=== PATIENT | female | born 1985 | race Caucasian/White ===

== ENCOUNTER 2016-12-31 14:55 | Emergency (ER) | payer BC, OTHER ==
[2016-12-31 15:02] VITALS: BP 118/74; BMI 35.9
--- NOTE | 2016-12-31 15:50 | DR.GENAD ---
HPI - PCP Primary Care Physician: liza - HPI Comment HPI Comment: WORSE TODAY. FEVER ON AND OFF. PATIENT SAID COUGH IS GAGGING HER AND CAUSING HER TO VOMIT. - Complaint/Symptoms Chief Complaint Doctors Comments: COUGH, COLD CONGESTION AND SORE THROAT TIMES ONE WEEK. Chief Complaint:: patient stated she has been coughing, fever, vomiting and cant eat for about a week. today is worse - Nurses notes reviewed Nurses Notes Review: Yes - Source History Provided: Patient - Mode of Arrival Mode of Arrival: Ambulatory - Timing Onset of Chief Complaint: 12/24/16 Came on: Suddenly - Duration Duration: Constant Duration: Days - Severity Severity: Moderate PMH - PMH Past Medical History: Yes Past Medical History: Anxiety Past Surgical History: Yes Surgical History: , Cholecystectomy - Family History History of Family Medical Conditions: Yes Family Medical History: Diabetes Mellitus, Cancer, Hypertension - Social History Does patient currently use any type of tobacco product: Yes Have you used tobacco products in the last 12 months: Yes Type of Tobacco Use: Cigarettes How many years tobacco product used: 1 Does any household member use tobacco: Yes Alcohol Use: None Do you use any recreational Drugs:: No Lives With: Family Lives Where: Home - infectious screening In the last 2 months have you had wt loss of >10#?: NO Have you had fever, night sweats or hemotysis?: No Have you traveled outside the country in the last 6 months?: No Isolation: Standard ROS - Review of Systems Constitutional: No Symptoms Reported, Weakness, Fatigue. negative: Chills, Fever Eyes: No Symptoms Reported. negative: Eye Pain, Discharge ENTM: No Symptoms Reported, Nose Discharge, Nose Congestion, Throat Pain. negative: Ear Pain Respiratoy: No Symptoms Reported, Productive Cough. negative: Short of Breath, Wheezing Cardiovascular: No Symptoms Reported. negative: Chest Pain Gastrointestinal/Abdominal: No Symptoms Reported. negative: Diarrhea, Nausea, Vomiting Genitourinary: No Symptoms Reported. negative: Dysuria, Frequency, Hematuria Neurological: Headache, Weakness, Dizziness Musculoskeletal: No Symptoms Reported Integumentary: No Symptoms Reported Hematologic/Lymphatic: No Symptoms Reported Endocrine: No Symptoms Reported All Other Systems: Reviewed and Negative PE - Vital Signs Vitals: Temperature 98.4 F Pulse Rate 96 Respiratory Rate 18 Blood Pressure 118/74 O2 Sat by Pulse Oximetry 96 - General Limitations: No Limitations General Appearance: Alert - Head Head Exam: Normal Inspection - Eyes Eye exam: Normal Appearance - ENT ENT Exam: Normal External Ear Exam External Ear Exam: Normal External Inspection TM/Canal Exam: Bilateral Normal Nose Exam: Normal Nose Exam Mouth Exam: Normal Inspection Throat Exam: Normal Inspection - Neck Neck Exam: Trachea Midline - Chest Chest Inspection: Symmetric Chest Wall Rise - Respiratory Respiratory Exam: Normal Lung Sounds Bilat Respiratory Exam: Bilateral Rhonchi, Upper Rhonchi, Lower Rhonchi - Cardiovascular Cardiovascular Exam: Regular Rate, Normal Rhythm, Normal Heart Sounds - Abdominal Exam Abdominal Exam: Normal Bowel Sounds, Soft. negative: Tenderness - Extremities Extremities Exam: Normal Inspection - Back Back Exam: Normal Inspection - Neurologic Neurological Exam: Alert, Oriented X3 - Psychiatric Psychiatric Exam: Normal Affect, Normal Mood - Skin Skin Exam: Normal Color MDM - Differential Diagnosis Differential Diagnosis: SINUSITIS, BRONCHITIS, PNEUMONIA Course - Treatment Treatment: SEE ORDERS. - Education/Counseling Education/Counseling: Patient, Education Educated On: Treatment, Diagnosis, Needs for Follow Up ROR - XRAY XRAY Interpreted by: Radiologist XRAY Findings: REPORT DISCUSS WITH PATIENT. - Diagnosis Discharge Problem: Bronchitis Sinusitis Qualifiers: Sinusitis location: unspecified location Chronicity: acute Recurrence: not specified as recurrent Qualified Code(s): J01.90 - Acute sinusitis, unspecified - Discharge Plan Disposition: HOME, SELF-CARE Condition: Stable Prescriptions: Acetaminophen with Codeine [Tylenol/Codeine #3 300-30 mg] 1 tab PO Q6H PRN #15 tab PRN Reason: Pain Amoxicillin/Potassium Clav [Augmentin 875-125 Tablet] 1 tab PO Q12H #20 tab Benzonatate [TESSALON PERLES *] 200 mg PO TID PRN #30 cap PRN Reason: Cough - Follow ups/Referrals Follow ups/Referrals: HAI HOLBROOK [Primary Care Provider] - 3 days - Instructions Instructions: Sinusitis, Adult, [id number], Acute Bronchitis, [id number] Additional Instructions: RETURN TO ED IF WORSE.
--- NOTE | 2016-12-31 16:18 | RAD ---
Examination: Portable AP chest History: Cough, fever and vomiting Comparison reference: 03/28/2016. Findings: Continued normal heart size with clear lungs and pleural spaces. Impression: No acute abnormality or significant interval change. Reported By:
== END 2016-12-31 16:27 | disposition home or self-care (01) ==
LOC: ER 15:08
DX: J40 Bronchitis, not specified as acute or chronic (principal); J01.80 Other acute sinusitis
CPT/HCPCS: 71010; 99282

== ENCOUNTER 2017-01-24 20:46 | Emergency (ER) | payer BC, OTHER ==
[2017-01-24 21:00] VITALS: BP 134/70; BMI 34.7
[2017-01-24] MEDS ORDERED: TORADOL 60 MG VIAL IM ONE (21:23)
--- NOTE | 2017-01-24 21:25 | DR.GENAD ---
HPI - PCP Primary Care Physician: nfd - Complaint/Symptoms Chief Complaint Doctors Comments: Patient presents with complaint of lower back pain past two days. She has a history of back pain, but has exacerbations. Denies trauma. pain 7/10,worse with flexion, onset two days ago. Chief Complaint:: lower back pain for 2 weeks just gotten worse can't turn with pain - Source History Provided: Patient - Mode of Arrival Mode of Arrival: Ambulatory - Timing Onset of Chief Complaint: 01/10/17 PMH - PMH Past Medical History: No Past Medical History: Anxiety Past Surgical History: Yes Surgical History: , Cholecystectomy, Tonsillectomy - Family History History of Family Medical Conditions: Yes Family Medical History: Diabetes Mellitus, Cancer, Hypertension - Social History Do you use any recreational Drugs:: No Lives Where: Home - infectious screening In the last 2 months have you had wt loss of >10#?: NO Have you had fever, night sweats or hemotysis?: No Have you traveled outside the country in the last 6 months?: No Isolation: Standard ROS - Review of Systems Eyes: No Symptoms Reported ENTM: No Symptoms Reported Respiratoy: No Symptoms Reported Cardiovascular: No Symptoms Reported Gastrointestinal/Abdominal: No Symptoms Reported Genitourinary: No Symptoms Reported Neurological: No Symptoms Reported Musculoskeletal: Back Pain Integumentary: No Symptoms Reported Hematologic/Lymphatic: No Symptoms Reported Endocrine: No Symptoms Reported Psychiatric: No Symptoms Reported All Other Systems: Reviewed and Negative PE - Vital Signs Vitals: Temperature 98.6 F Pulse Rate 105 Respiratory Rate 18 Blood Pressure 134/70 O2 Sat by Pulse Oximetry 100 - General General Appearance: Alert, In No Apparent Distress - Head Head Exam: Normal Inspection, Atraumatic - Eyes Eye exam: Normal Appearance, PERRL, EOMI - ENT ENT Exam: Normal Exam External Ear Exam: Normal External Inspection TM/Canal Exam: Bilateral Normal Nose Exam: Normal Nose Exam Mouth Exam: Normal Inspection Throat Exam: Normal Inspection - Neck Neck Exam: Normal Inspection, Full ROM - Chest Chest Inspection: Normal Inspection - Respiratory Respiratory Exam: Normal Lung Sounds Bilat Respiratory Exam: Bilateral Clear to Auscultation - Cardiovascular Cardiovascular Exam: Regular Rate, Normal Rhythm - Abdominal Exam Abdominal Exam: Normal Inspection, Normal Bowel Sounds Abdominal Tenderness: negative: RUQ, RLQ, LUQ, LLQ, Epigastrium, Suprapubic, Diffuse, Mild, Moderate, Severe, Other - Extremities Extremities Exam: Normal Inspection, Full ROM - Back Back Exam: Normal Inspection, Full ROM - Neurologic Neurological Exam: Alert, Oriented X3, CN II-XII Intact - Psychiatric Psychiatric Exam: Normal Affect - Skin Skin Exam: Warm, Dry ROR - Labs Reviewed Laboratory: Specimen Type Clean catch urine 01/24/17 21:10 Urine Color Pale yellow (YELLOW) 01/24/17 21:10 Urine Appearance Clear (CLEAR) 01/24/17 21:10 Urine pH 5.0 (5.0 - 8.0) 01/24/17 21:10 Ur Specific [place] 1.010 (1.000-1.030) 01/24/17 21:10 Urine Protein Negative (NEGATIVE) 01/24/17 21:10 Urine Glucose (UA) Negative (NEGATIVE) 01/24/17 21:10 Urine Ketones Negative (NEGATIVE) 01/24/17 21:10 Urine Occult Blood Negative (NEGATIVE) 01/24/17 21:10 Urine Nitrite Negative (NEGATIVE) 01/24/17 21:10 Urine Bilirubin Negative (NEGATIVE) 01/24/17 21:10 Urine Urobilinogen Normal (NORMAL) 01/24/17 21:10 Ur Leukocyte Esterase Negative (NEGATIVE) 01/24/17 21:10 Urine RBC 0-1 /HPF (NEGATIVE) 01/24/17 21:10 Urine WBC None seen /HPF (NEGATIVE) 01/24/17 21:10 Ur Squamous Epith Cells Negative /HPF (NEGATIVE) 01/24/17 21:10 Amorphous Sediment Trace /HPF (NEGATIVE) 01/24/17 21:10 Urine Bacteria Negative /HPF (NEGATIVE) 01/24/17 21:10 Ur Culture Indicated? No/not indicated 01/24/17 21:10 - XRAY XRAY Interpreted by: Radiologist (CT Lumbar Spine: There is a normal lumbar lordosis. There is preservation of vertebral body and disc space height. The osterior elements are normal in appearance and alignment. There is no evidence of significant neural foraminal stenosis or central canal compromise.) - Diagnosis Discharge Problem: Low back pain Qualifiers: Chronicity: chronic Back pain laterality: midline Sciatica presence: without sciatica Qualified Code(s): M54.5 - Low back pain; G89.29 - Other chronic pain; G89.29 - Other chronic pain - Discharge Plan Condition: Stable - Follow ups/Referrals Follow ups/Referrals: NFD,None [Primary Care Provider] - 3 days - Instructions
[2017-01-24] MEDS ORDERED: TORADOL 60 MG VIAL ONE (21:26)
[2017-01-24 21:58] LABS: APPEARANCE,URINE CLEAR (CLEAR); COLOR,URINE PALE YELLOW (YELLOW); GLUCOSE, URINE NEGATIVE (NEGATIVE); KETONES,URINE NEGATIVE (NEGATIVE); PROTEIN,URINE NEGATIVE (NEGATIVE)
[2017-01-24 21:59] LABS: AMORPHOUS SEDIMENT,UR TRACE /HPF (NEGATIVE); BACTERIA,URINE NEGATIVE /HPF (NEGATIVE); BILIRUBIN,URINE NEGATIVE (NEGATIVE); BLOOD/HEMOGLOBIN,URINE NEGATIVE (NEGATIVE); LEUKOCYTE ESTERASE ,URINE NEGATIVE (NEGATIVE); NITRITES,URINE NEGATIVE (NEGATIVE); RBC,URINE 0-1 /HPF (NEGATIVE); SQUAMOUS EPITHELIAL CELL,UR NEGATIVE /HPF (NEGATIVE); UROBILINOGEN,URINE NORMAL (NORMAL)
--- NOTE | 2017-01-24 22:02 | CT ---
CT LUMBAR SPINE WITHOUT CLINICAL HISTORY: 31-year-old female with low back pain for 2 weeks. COMPARISON: None. TECHNIQUE: Multiple, noncontrasted axial CT images were obtained from the thoracolumbar junction to the sacrum and reconstructed in the sagittal and coronal planes. FINDINGS: There is a normal lumbar lordosis. There is preservation of vertebral body and disc space h eight. The posterior elements are normal in appearance and alignment. There is no evidence of signifi cant neural foraminal stenosis or central canal compromise. No acute fracture or malalignment. IMPRESSION: 1. No acute fracture or malalignment. 2. No significant central canal or neural foraminal stenosis. Reported By:
== END 2017-01-24 22:13 | disposition home or self-care (01) ==
LOC: ER 21:03
DX: M54.5 Low back pain (principal); G89.29 Other chronic pain
CPT/HCPCS: 72131; 81001; 96372; 99282; 99283; J1885

== ENCOUNTER 2017-03-17 20:42 | Emergency (ER) | payer OTHER ==
[2017-03-17 21:04] VITALS: BMI 37.7
--- NOTE | 2017-03-17 21:15 | DR.GENAD ---
HPI - PCP Primary Care Physician: AC - Complaint/Symptoms Chief Complaint Doctors Comments: Patient is complaining of her stomach cramping , burning and hurting after taking increased Motrin. States she did not know you could overdose of ibuprofen and she was taking a hand full of Motrin 100mg at a time. States she has fibromyalgia and was taking Motrin 800mg from Dr. Shen but she ran out of Motrin 800 and went to the store and bought a bottle of motrin 100mg and took a hand full of them several times today. States the last time was about two hours ago. States she is unsure of the amount she took during the day. She smokes 1/2 pack cigarettes daily but denies alcohol or drug usage. states her periods has been regular and she is not . she denies dysuria, hematuria, nausea or vomiting or any recent trauma. States her last period was a month ago and she is not taking any contraceptives. Patient states she purchase a bottle of 100 motrin 100mg tablets and may have taken all of them in 1 1/2 day period. States she did not take all the pills one time and she do not thing she took the whole bottle of pills. She denies headache, tinnitus, blurred vision or problems with her balance. She denies mary or vomiting. Patient states she is not suicidal nor was she trying to hurt herself. Chief Complaint:: PT STATES" I WAS IN SO MUCH PAIN I TOOK A HANDFUL OF MOTRIN AT A TIME THRUOUT THE DAY AND YESTERDAY I TOOK SOME TOO BUT NOT MANY" BOTTLE HAD 200 - Nurses notes reviewed Nurses Notes Review: Yes - Source History Provided: Patient - Mode of Arrival Mode of Arrival: EMS - Timing Onset of Chief Complaint: 03/16/17 Came on: Gradually - Duration Duration: Intermittent How lon Duration: Days - Location Location: diffuse abdominal pain - Severity Severity: Moderate - Modifying Factors Worsens:: nothing Improves:: nothing PMH - PMH Past Medical History: Yes Past Medical History: Anxiety Past Medical History Comment: FIBROMYALGIA Past Surgical History: Yes Surgical History: , Cholecystectomy, Tonsillectomy - Family History History of Family Medical Conditions: Yes Family Medical History: Diabetes Mellitus, Cancer, Hypertension - Social History Type of Tobacco Use: Cigarettes Does any household member use tobacco: No Alcohol Use: None Do you use any recreational Drugs:: No Lives With: Family Lives Where: Home - infectious screening In the last 2 months have you had wt loss of >10#?: NO Have you had fever, night sweats or hemotysis?: No Have you traveled outside the country in the last 6 months?: No Isolation: Standard ROS - Review of Systems Constitutional: No Symptoms Reported. negative: See HPI, Chills, Diaphoresis, Fever, Malaise, Weakness, Irritable, Fatigue, Loss of Appetite, Other Eyes: No Symptoms Reported ENTM: No Symptoms Reported. negative: See HPI, Ear Pain, Ear Discharge, Pulling on Ears, Hearing Loss, Nose Pain, Nose Discharge, Epistaxis, Nose Congestion, Mouth Pain, Mouth Swelling, Loose Teeth, Drooling, Throat Pain, Throat Swelling, Ear Foreign Body Respiratoy: No Symptoms Reported. negative: See HPI, Productive Cough, Non- Productive Cough, Moist Cough, Dry Cough, Hacking Cough, Barking Cough, Brassy Cough, Orthopnea, Short of Breath, Stridor, Wheezing, Hemoptysis, Other Cardiovascular: No Symptoms Reported. negative: See HPI, Chest Pain, Edema, Palpitations, Syncope, Cyanosis, Skin Mottling, Other Gastrointestinal/Abdominal: No Symptoms Reported, Abdominal Pain, Nausea. negative: See HPI, Constipation, Diarrhea, Vomiting, Food Intolerance, Other Genitourinary: No Symptoms Reported. negative: See HPI, Discharge, Dysuria, Frequency, Hematuria, Pain, Bleeding, Other Neurological: No Symptoms Reported Musculoskeletal: No Symptoms Reported Integumentary: No Symptoms Reported. negative: See HPI, Change in Color, Change in Hair/Nails, Dryness, Lesions, Lumps, Rash, Itching, Wound, Bruises, Juandice, Other Hematologic/Lymphatic: No Symptoms Reported. negative: See HPI, Anemia, Blood Clots, Easy Bleeding, Easy Bruising, Swollen Glands, Lymphadenopathy, Other Endocrine: No Symptoms Reported Psychiatric: No Symptoms Reported, Depression PE - Vital Signs Vitals: Temperature 97.2 F Pulse Rate [Right Brachial] 87 Pulse Rate 103 Respiratory Rate 20 Blood Pressure [Right Arm] 115/76 Blood Pressure 113/58 O2 Sat by Pulse Oximetry 97 - General Limitations: No Limitations General Appearance: Alert, In No Apparent Distress - Head Head Exam: Normal Inspection, Atraumatic, Normocephalic - Eyes Eye exam: Normal Appearance, PERRL, EOMI. negative: Scleral Icterus, Conjunctival Injection, Nystagmus, Miosis, Mydrasis, Periorbital Swelling, Periorbital Tenderness, Other - ENT ENT Exam: Normal Exam, Normal Oropharynx, Normal External Ear Exam, Mucous Membranes Moist, TM's Normal Bilaterally External Ear Exam: Normal External Inspection TM/Canal Exam: Bilateral Normal Mouth Exam: Normal Inspection Throat Exam: Normal Inspection - Neck Neck Exam: Normal Inspection, Full ROM, Trachea Midline. negative: Tenderness, Meningismus, Lymphadenopathy, Thyromegaly, Other - Chest Chest Inspection: Normal Inspection, Symmetric Chest Wall Rise. negative: Tenderness, Rash, Abscess, Other - Respiratory Respiratory Exam: Normal Lung Sounds Bilat Respiratory Exam: Bilateral Clear to Auscultation - Cardiovascular Cardiovascular Exam: Regular Rate, Normal Rhythm, Normal Heart Sounds. negative : Bradycardia, Tachycardia, Irregular Rhythm, Systolic Murmur, Diastolic Murmur , Rubs, Gallop, Clicks, JVD, +S1, +S2, +S3, +S4, Other - Abdominal Exam Abdominal Exam: Normal Inspection, Normal Bowel Sounds, Soft, Distention, Tenderness (epigastric and hypogastric tenderness with periumbilical tenderness) . negative: Guarding, Rebound, Rigidity, Dimnished Bowel Sounds, Hyperactive Bowel Sounds, Hypoactive Bowel Sounds, Organomegaly, Trauma, Incision, Ascites, Mass, Bruit, Pulsatile Mass, Hernia, Other Abdominal Tenderness: Epigastrium, Suprapubic, Moderate - Extremities Extremities Exam: Normal Inspection, Full ROM, Normal Capillary Refill. negative: Tenderness, Edema, Joint Swelling, Calf Tenderness, Other - Back Back Exam: Normal Inspection, Full ROM. negative: Tenderness, (R) CVA Tenderness, (L) CVA Tenderness, Muscle Spasm, Paraspinal Tenderness, Vertebral Tenderness, Rashes, (R) Sciatic Notch Tenderness, (L) Sciatic Notch Tendern, (R ) Straight Leg Raise, (L) Straight Leg Raise, Other - Neurologic Neurological Exam: Alert, Oriented X3, CN II-XII Intact, Reflexes Normal. negative: Normal Gait (gait not tested) - Psychiatric Psychiatric Exam: Normal Affect, Normal Mood. negative: Depressed, Agitated, Anxious, Flat Affect, Manic, Homicidal Ideation, Suicidal Ideation, Other - Skin Skin Exam: Warm, Dry, Intact, Normal Color Course - Reevaluation 1st: Improved 2nd: Improved (Patient states she has been doing better; vomited x1; no signs of bleeding; denies tinnutis or problems with her balance.) - Consultation Called: 01:35 Call Returned: 01:35 (Poison control contacted state they felt it was safe to dismiss patient) - Education/Counseling Education/Counseling: Patient, Family Educated On: Treatment, Diagnosis, Prognosis, Needs for Follow Up ROR - Labs Reviewed Result Diagrams: 03/17/17 21:28 03/17/17 23:55 Laboratory: WBC 9.8 X10^3/uL (3.6-10.0) 03/17/17 21: RBC 4.81 X10^6/uL (3.5-5.4) 03/17/17 21: Hgb 15.2 g/dL (12.0-16.0) 03/17/17 21: Hct 44.4 % (36.0-47.0) 03/17/17 21: MCV 92.3 fL (80.0-100.0) 03/17/17 21: MCH 31.7 pg (27.0-34.0) 03/17/17 21: MCHC 34.3 g/dL (33.0-35.0) 03/17/17 21: RDW 13.0 % (11.6-16.5) 03/17/17: Plt Count 377 X10^3/uL (150.0-450.0) 03/17/17 21: MPV 6.8 fL (7.4-11.0) L 03/17/17 21: Neut % 73.4 % (42.0-75.0) 03/17/17 21: Lymph % 19.0 % (21.0-51.0) L 03/17/17 21: [place] % 6.7 % (0.0-13.0) 03/17/17 21: Eos % 0.4 % (0.9-2.9) L 03/17/17 21:28 Baso % 0.5 % (0.2-1.0) 03/17/17 21:28 Neut # 7.2 x10^3/uL (2.2-4.8) H 03/17/17 21:28 Lymph # 1.9 X10^3/uL (1.3-2.9) 03/17/17 21:28 [place] # 0.7 x10^3/uL (0.3-0.8) 03/17/17 21:28 Eos # 0.0 x10^3/uL (0.0-0.2) 03/17/17 21:28 Baso # 0.0 X10^3/uL (0.0-0.1) 03/17/17 21:28 Absolute Nucleated RBC 0.0 /100WBC 03/17/17 21:28 Sodium 141 mmol/L (136-145) 03/17/17 23:55 Corrected Sodium 141 mmol/L (136-145) 03/17/17 23:55 Potassium 4.6 mmol/L (3.5-5.1) 03/17/17 23:55 Chloride 104 mmol/L (98-107) 03/17/17 23:55 Carbon Dioxide 24.4 mmol/L (21-32) 03/17/17 23:55 BUN 16 mg/dL (7-18) 03/17/17 23:55 Creatinine 1.48 mg/dL (0.55-1.02) H 03/17/17 23:55 Est GFR (MDRD) Af Amer 52 (>60) L 03/17/17 23:55 Est GFR (MDRD) Non-Af 43 (>60) L 03/17/17 23:55 Glucose 111 mg/dL (65-99) H 03/17/17 23:55 Calcium 8.9 mg/dL (8.5-10.1) 03/17/17 23:55 Corrected Calcium TNP 03/17/17 23:55 Total Bilirubin 0.20 mg/dL (0.2-1.0) 03/17/17 23:55 AST 25 Units/L (15-37) 03/17/17 23:55 ALT 44 Units/L (12-78) 03/17/17 23:55 Alkaline Phosphatase 97 Units/L (46-116) 03/17/17 23:55 Total Protein 7.8 g/dL (6.4-8.2) 03/17/17 23:55 Albumin 3.8 g/dL (3.4-5.0) 03/17/17 23:55 Globulin 4.0 g/dL (2.5-4.5) 03/17/17 23:55 Albumin/Globulin Ratio 1.0 Ratio (1.1-2.1) L 03/17/17 23:55 Amylase 74 Units/L (25-115) 03/17/17 21:28 Lipase 279 Units/L (73-393) 03/17/17 21:28 HCG, Qual Negative <10 mIU/mL 03/17/17 21:28 Specimen Type Clean catch urine 03/17/17 21:02 Urine Color Pale yellow (YELLOW) 03/17/17 21:02 Urine Appearance Clear (CLEAR) 03/17/17 21:02 Urine pH 5.0 (5.0 - 8.0) 03/17/17 21:02 Ur Specific [place] 1.010 (1.000-1.030) 03/17/17 21:02 Urine Protein Negative (NEGATIVE) 03/17/17 21:02 Urine Glucose (UA) Negative (NEGATIVE) 03/17/17 21:02 Urine Ketones Negative (NEGATIVE) 03/17/17 21:02 Urine Occult Blood 1+ (NEGATIVE) 03/17/17 21:02 Urine Nitrite Negative (NEGATIVE) 03/17/17 21:02 Urine Bilirubin Negative (NEGATIVE) 03/17/17 21:02 Urine Urobilinogen Normal (NORMAL) 03/17/17 21:02 Ur Leukocyte Esterase Negative (NEGATIVE) 03/17/17 21:02 Urine RBC 1-5 /HPF (NEGATIVE) 03/17/17 21:02 Urine WBC 0 /HPF (NEGATIVE) 03/17/17 21:02 Ur Squamous Epith Cells Few /HPF (NEGATIVE) 03/17/17 21:02 Urine Bacteria Negative /HPF (NEGATIVE) 03/17/17 21:02 Ur Culture Indicated? No/not indicated 03/17/17 21:02 Salicylates < 2.8 mg/dL (2.8-20) L 03/17/17 23:55 Urine Opiates Screen Negative (NEG=<300) 03/17/17 21:02 Urine Methadone Screen Negative (NEG=<300) 03/17/17 21:02 Acetaminophen 0.0 ug/mL (10-30) L 03/17/17 23:55 Ur Barbiturates Screen Negative (NEG=<200) 03/17/17 21:02 Ur Phencyclidine Scrn Negative (NEG=<25) 03/17/17 21:02 Ur Amphetamines Screen Negative (NEG=<1000) 03/17/17 21:02 U Benzodiazepines Scrn Negative (NEG=<200) 03/17/17 21:02 Urine Cocaine Screen Negative (NEG=<300) 03/17/17 21:02 U Marijuana (THC) Screen Negative (NEG=<50) 03/17/17 21:02 H. pylori IgG Antibody Negative (NEGATIVE) 03/17/17 21:28 - Diagnosis Discharge Problem: Hyperglycemia Accidental ibuprofen overdose Qualifiers: Encounter type: initial encounter Qualified Code(s): T39.311A - Poisoning by propionic acid derivatives, accidental (unintentional), initial encounter Drug ingestion, accidental Qualifiers: Encounter type: initial encounter Qualified Code(s): T50.901A - Poisoning by unspecified drugs, medicaments and biological substances, accidental ( unintentional), initial encounter - Discharge Plan Disposition: 01 HOME, SELF-CARE Condition: Stable Prescriptions: Ranitidine HCl [ZANTAC TAB 150 MG *] 150 mg PO BID #60 tab - Follow ups/Referrals Follow ups/Referrals: MARA SHEN [Primary Care Provider] - 3 days - Instructions Instructions: Accidental Overdose, Overdose, Adult
[2017-03-17 21:23] LABS: BILIRUBIN,URINE NEGATIVE (NEGATIVE); BLOOD/HEMOGLOBIN,URINE 1+ (NEGATIVE); GLUCOSE, URINE NEGATIVE (NEGATIVE); KETONES,URINE NEGATIVE (NEGATIVE); LEUKOCYTE ESTERASE ,URINE NEGATIVE (NEGATIVE); NITRITES,URINE NEGATIVE (NEGATIVE); PROTEIN,URINE NEGATIVE (NEGATIVE); UROBILINOGEN,URINE NORMAL (NORMAL)
[2017-03-17 21:32] LABS: APPEARANCE,URINE CLEAR (CLEAR); BACTERIA,URINE NEGATIVE /HPF (NEGATIVE); COLOR,URINE PALE YELLOW (YELLOW); SQUAMOUS EPITHELIAL CELL,UR FEW /HPF (NEGATIVE)
--- NOTE | 2017-03-17 21:34 | CT ---
CT abdomen and pelvis without contrast Indication: Abdominal pain, possible Tylenol overdose Technique: Helical CT images of the abdomen and pelvis were obtained without IV contrast. Reformatted images in the coronal and sagittal planes were also generated for review. Comparison: None Findings: Lung bases are clear. No aggressive osseous lesions are identified. The gallbladder is surgically absent. Within the limits of a noncontrast exam, the liver is mildly en larged and diffusely hypoattenuating, compatible with fatty infiltration. The spleen, pancreas and ad renals are unremarkable. Both kidneys and visualized ureters are normal without radiopaque stones or hydroureteronephrosis. There is no bowel inflammation or obstruction. The appendix is normal. A small fat containing umbilic al hernia is noted. The IVC, abdominal aorta and urinary bladder are normal. The unenhanced uterus an d adnexa are grossly within normal limits. No free air, free fluid or lymphadenopathy is identified. Impression: No acute abnormality identified to explain patient's symptoms, within the limitations of a noncontras t exam. Mild hepatomegaly, hepatic steatosis and additional incidental findings, as above. Reported By:
[2017-03-17 21:39] LABS: BASOPHILS % (AUTO) 0.5 % (0.2-1.0); EOSINOPHILS % (AUTO) 0.4 % (0.9-2.9); HEMATOCRIT 44.4 % (36.0-47.0); HEMOGLOBIN 15.2 g/dL (12.0-16.0); LYMPHOCYTES # (AUTO) 1.9 X10^3/uL (1.3-2.9); MEAN CORPUSCULAR HEMOGLOBIN 31.7 pg (27.0-34.0); MEAN CORPUSCULAR HGB CONC 34.3 g/dL (33.0-35.0); MEAN CORPUSCULAR VOLUME 92.3 fL (80.0-100.0); MEAN PLATELET VOLUME 6.8 fL (7.4-11.0); MONOCYTES # (AUTO) 0.7 x10^3/uL (0.3-0.8); MONOCYTES % (AUTO) 6.7 % (0.0-13.0); NEUTROPHILS # (AUTO) 7.2 x10^3/uL (2.2-4.8); NEUTROPHILS % (AUTO) 73.4 % (42.0-75.0); PLATELET COUNT 377 X10^3/uL (150.0-450.0); RED BLOOD COUNT 4.81 X10^6/uL (3.5-5.4); WHITE BLOOD COUNT 9.8 X10^3/uL (3.6-10.0)
[2017-03-17 21:47] LABS: ALANINE AMINOTRANSFERASE 42 Units/L (12-78); ALBUMIN 3.9 g/dL (3.4-5.0); ALKALINE PHOSPHATASE 97 Units/L (46-116); AMYLASE 74 Units/L (25-115); ASPARTATE AMINO TRANSFERASE 25 Units/L (15-37); BLOOD UREA NITROGEN 14 mg/dL (7-18); CALCIUM 8.9 mg/dL (8.5-10.1); CARBON DIOXIDE 21.4 mmol/L (21-32); CHLORIDE 105 mmol/L (98-107); COR NA(FOR HYPERGLY) 140 mmol/L (136-145); CREATININE 1.25 mg/dL (0.55-1.02); LIPASE 279 Units/L (73-393); SODIUM 140 mmol/L (136-145); TOTAL PROTEIN 7.6 g/dL (6.4-8.2); eGFR BLACK RACES > 60 (>60); eGFR NON BLACK RACES 52 (>60)
[2017-03-17 21:54] LABS: SALICYLATE < 2.8 mg/dL (2.8-20)
[2017-03-17 21:57] LABS: SERUM PREGNANCY TEST, QUAL NEGATIVE <10 mIU/mL
[2017-03-18 00:18] LABS: ALANINE AMINOTRANSFERASE 44 Units/L (12-78); ALBUMIN 3.8 g/dL (3.4-5.0); ALKALINE PHOSPHATASE 97 Units/L (46-116); ASPARTATE AMINO TRANSFERASE 25 Units/L (15-37); BLOOD UREA NITROGEN 16 mg/dL (7-18); CALCIUM 8.9 mg/dL (8.5-10.1); CARBON DIOXIDE 24.4 mmol/L (21-32); CHLORIDE 104 mmol/L (98-107); COR NA(FOR HYPERGLY) 141 mmol/L (136-145); CREATININE 1.48 mg/dL (0.55-1.02); SODIUM 141 mmol/L (136-145); TOTAL PROTEIN 7.8 g/dL (6.4-8.2); eGFR BLACK RACES 52 (>60); eGFR NON BLACK RACES 43 (>60)
[2017-03-18 00:22] LABS: SALICYLATE < 2.8 mg/dL (2.8-20)
[2017-03-18] MEDS ORDERED: NS 1000 ML 1,000 ML IV ONE (00:42)
[2017-03-18] MEDS ORDERED: NS 1000 ML 1,000 ML ONE (01:00)
[2017-03-18] MEDS ORDERED: LEVSIN/MAALOX/LIDOC VISC PO STA (01:03)
[2017-03-18 02:16] VITALS: BP 125/69
== END 2017-03-18 02:18 | disposition home or self-care (01) ==
LOC: ER 20:42
DX: T39.311A Poisoning by propionic acid derivatives, accidental (unintentional), initial encounter (principal); T50.901A Poisoning by unspecified drugs, medicaments and biological substances, accidental (unintentional), initial encounter; R73.9 Hyperglycemia, unspecified; R16.0 Hepatomegaly, not elsewhere classified; K76.0 Fatty (change of) liver, not elsewhere classified; R10.84 Generalized abdominal pain
CPT/HCPCS: 36415; 74176; 80053; 80307; 81001; 82150; 83690; 84703; 85025; 86677; 96365; 99283; A4216; G0434; G6038; G6039